=== PATIENT | male | born 1975 | race African-American/Black ===

== ENCOUNTER 2025-06-18 12:09 | Emergency (ER) | payer MEDICAID, OTHER ==
[~2025-06-18] VITALS: Ht 188 cm; Wt 114.0 kg
[2025-06-18 12:15] VITALS: O2SAT 98
[2025-06-18] MEDS ORDERED: ONDANSETRON HCL 4MG/2ML INJ IV ONE (13:00)
[2025-06-18] MEDS ORDERED: KETOROLAC 30MG/ML VIAL IV ONE (13:00)
[2025-06-18 14:55] LABS: BASOPHILS % 1.0 % (0.0-2.0); EOSINOPHILS % 2.5 % (0.0-5.0); HEMATOCRIT. 39.8 % (42.0-52.0); HEMOGLOBIN. 13.6 g/dL (14.0-18.0); LYMPHOCYTES % 34.5 % (20.0-50.0); MEAN PLATELET VOLUME 7.9 fl (7.4-10.4); MONOCYTES % 7.1 % (2.0-8.0); NEUTROPHILS % 54.9 % (40.0-76.0); PLATELET 185 x1000/uL (130-400); RED BLOOD CELL COUNT 4.45 mill/uL (4.7-6.1); RED CELL DISTRIBUTION WIDTH 13.9 % (11.6-14.6)
[2025-06-18 15:18] LABS: CREATININE 1.2 mg/dL (0.6-1.3)
[2025-06-18 15:19] LABS: TROPONIN I HIGH SENSITIVITY 12 ng/L (3.0-53); UREA NITROGEN BLOOD 14 mg/dL (9-23)
[2025-06-18 15:20] LABS: ASPARTATE AMINOTRANSFERASE 18 IU/L (<34)
[2025-06-18 15:21] LABS: BILIRUBIN DIRECT 0.2 mg/dL (<=3.0); BILIRUBIN TOTAL 0.7 mg/dL (0.1-1.0); PROTEIN TOTAL 6.9 g/dL (6.0-8.3)
[2025-06-18] MEDS: ONDANSETRON HCL 4MG/2ML INJ IV NR (16:31)
[2025-06-18] MEDS: KETOROLAC 30MG/ML VIAL IV NR (16:32)
[2025-06-18] MEDS: LOSARTAN 50 MG TABLET PO NR (16:37)
[2025-06-18] MEDS: AMLODIPINE 10MG TABLET PO NR (16:38)
[2025-06-18 18:40] VITALS: BP 171/101; PULSE 69; RESP 17; TEMP 36.7; O2SAT 100
== END 2025-06-18 18:48 | disposition short-term general hospital (02) ==
LOC: ER 12:54 → CANBEDREQ 15:37 → ER 18:48
DX: R11.0 Nausea (principal); E78.00 Pure hypercholesterolemia, unspecified; I10 Essential (primary) hypertension; Z86.73 Personal history of transient ischemic attack (TIA), and cerebral infarction without residual deficits
CPT/HCPCS: 80076; 80048; 83690; 85025; 84484; 36415; 96374; 96375; 99285; J1885; J2405; Z7610; A4606